=== PATIENT | male | born 1965 | race Caucasian/White ===

== ENCOUNTER → 2017-09-08 | Day surgery (SDC) | payer OTHER ==
[~2017-09-08] MED LIST: AMBIEN CR PO; ATORVAS; ATORVASTATIN PO; BYSTOLIC PO; LIDOCAINE HCL 2% LOCAL INJ 5 ML SDV VIAL INJ ONE; LOSARTAN POTASS25 MG PO; MAXALT PO; MIDAZOLAM HCL 2 MG/2 ML VIAL ONE; PROPOFOL IV EMULSION 10 MG/ML 20 ML VIAL ONE; TESTOSTERONE SQ; TRULICITY SC; XIGDUO PO
--- NOTE | 2017-09-08 11:45 | Operative Report ---
DATE OF PROCEDURE: September 08, 2017 REFERRING PHYSICIAN: Dr. Jayson Lockett PROCEDURES PERFORMED 1. Esophagogastroduodenoscopy with biopsies. 2. Colonoscopy with polypectomy. INDICATIONS FOR EGD: Acid reflux. INDICATIONS FOR COLONOSCOPY: Colorectal cancer screening. Personal history of colon polyps. Mother with colon cancer. MEDICATION: Patient was done under MAC. Please see anesthesiologist's note. PROCEDURE: With the patient in the left lateral decubitus position, the flexible fiberoptic Olympus gastroscope was introduced into the esophagus under direct visualization without any difficulty. There was some patchy erythema noted in the distal esophagus. The scope was then advanced with ease into the stomach, and mucosa overlying the antrum and the body revealed some diffuse erythema and mild to moderate edema, and biopsies were obtained and sent to stain for H. pylori. There were 2 small ulcers noted in the antrum without active bleeding or stigmata of recent hemorrhage. Biopsies were obtained. Pylorus appeared to be of normal contour and shape. It was intubated with ease, and the scope was advanced all the way to the 2nd portion of the duodenum. The scope was then withdrawn slowly. Mucosa overlying the proximal 2nd portion and the duodenal bulb appeared to be within normal limits. The scope was then withdrawn back into the stomach and retroflexed. Mucosa overlying the fundus and the cardia appeared to be within normal limits. The scope was then straightened out. The stomach was decompressed. Scope was subsequently withdrawn. Patient tolerated the procedure well. IMPRESSION 1. Distal esophagitis. 2. Gastritis, biopsied. Biopsy sent to stain for H. pylori. 3. Gastric ulcers, minute, antrum, biopsied. PLAN: Follow up histology. Initiate Protonix 40 mg 1 p.o. q.a.m. a.c. The patient was then turned around. After adequate lubrication of the anal canal, a flexible fiberoptic Olympus colonoscope was inserted into the rectum with ease and advanced all the way to the cecum. Prep overall was suboptimal to poor with scattered stools throughout the colon. Two polyps were snared from the cecum, but the cecum was only partially visualized due to the retained stools. Whatever was visualized of the mucosa overlying the ascending, transverse, descending, sigmoid and rectum grossly appeared to be within normal limits. The scope was then retroflexed into the distal rectum, and moderate-size internal hemorrhoids were noted, none of which was actively bleeding. The scope was then straightened out. The rectosigmoid area as well as the distal rectal area were decompressed. Scope was subsequently withdrawn. Patient tolerated the procedure well. IMPRESSION 1. Suboptimal to poor prep. 2. Cecal polyps times 2, snared. 3. Internal hemorrhoids, none actively bleeding. PLAN: Follow up histology. Patient will need a repeat colonoscopy after a better prep. Job#: [id number] cc:JAYSON LOCKETT, DO
== END | disposition home or self-care (01) ==
LOC: OR 08:01
PROVIDERS: ATTEND Internal Medicine Gastroenterology
DX: Z12.11 Encounter for screening for malignant neoplasm of colon (principal); D12.0 Benign neoplasm of cecum; K29.70 Gastritis, unspecified, without bleeding; K25.9 Gastric ulcer, unspecified as acute or chronic, without hemorrhage or perforation; K20.9 Esophagitis, unspecified; K21.9 Gastro-esophageal reflux disease without esophagitis; K64.8 Other hemorrhoids; K59.00 Constipation, unspecified; R05 Cough; Z80.0 Family history of malignant neoplasm of digestive organs; G47.33 Obstructive sleep apnea (adult) (pediatric); I10 Essential (primary) hypertension; E11.9 Type 2 diabetes mellitus without complications; Z01.810 Encounter for preprocedural cardiovascular examination; Z79.82 Long term (current) use of aspirin; Z68.42 Body mass index [BMI] 45.0-49.9, adult; Z87.442 Personal history of urinary calculi; Z87.891 Personal history of nicotine dependence
CPT/HCPCS: 43239; 45385; 93005; J2001; J2250; 45384